=== PATIENT | male | born 1985 | race Caucasian/White ===

== ENCOUNTER 2022-01-05 13:28 | Outpatient (CLI) | payer MEDICARE, MEDICAID | END 2022-01-05 23:59 | disposition home or self-care (01) | LOC: RAD 13:28 | PROVIDERS: ATTEND Nurse Practitioner Primary Care | DX: R13.12 Dysphagia, oropharyngeal phase (principal); R49.0 Dysphonia; G11.10 Early-onset cerebellar ataxia, unspecified | CPT/HCPCS: 74230 ==